=== PATIENT | male | born 1970 | race Caucasian/White ===

== ENCOUNTER 2019-06-27 09:57 | Emergency (ER) | payer OTHER ==
[2019-06-27] MEDS: CEFTRIAXONE 1 GM INJ IM (10:42)
[2019-06-27] MEDS: LIDOCAINE 1% (MPF) 5 ML VIAL INJ (10:42)
== END 2019-06-27 11:27 | disposition home or self-care (01) ==
LOC: FTE 09:57
DX: L03.114 Cellulitis of left upper limb (principal)
CPT/HCPCS: 73110; 73110-LT; 96372; 99284-25

== ENCOUNTER 2019-06-29 06:11 | Emergency (ER) | payer OTHER ==
[2019-06-29] MEDS: LIDOCAINE 1% (MPF) 5 ML VIAL INJ (06:35)
== END 2019-06-29 06:58 | disposition home or self-care (01) ==
LOC: FTE 06:11
DX: L02.414 Cutaneous abscess of left upper limb (principal)
CPT/HCPCS: 10060; 99282-25